=== PATIENT | male | born 2000 | race Caucasian/White ===

== ENCOUNTER → 2024-07-20 | Outpatient (CLI) | payer MEDICAID ==
[2024-07-20 09:21] LABS: Basophils # (auto) 0 10 ^3/uL (0-0.2); Basophils % (auto) 0.6 % (0.0-2.0); Eosinophils # (auto) 0 10 ^3/uL (0-0.8); Eosinophils % (auto) 0.3 % (0.0-7.0); Hematocrit 44.5 % (41.0-53.0); Hemoglobin 15.5 g/dL (13.5-17.5); Lymphocytes # (auto) 2.2 10 ^3/uL (0.4-5.4); Mean Corpuscular Hemoglobin 28.5 pg (28.0-32.0); Mean Corpuscular Hgb Conc. 34.8 g/dL (32.0-36.0); Mean Corpuscular Volume 82.1 fL (80.0-100.0); Monocytes # (auto) 0.4 10 ^3/uL (0-1.3); Monocytes % (auto) 6.2 % (0.0-12.0); Neutrophils # (auto) 4.4 10 ^3/uL (1.6-8.6); Neutrophils % (auto) 61.9 % (37.0-80.0); Platelet Count (auto) 382 10^3/uL (140-450); Red Blood Cells 5.42 10^6/uL (4.5-5.90); Red Cell Distribution Width 13.1 % (11.8-14.3); White Blood Cell 7.2 10^3/uL (4.4-10.8)
[2024-07-20 09:42] LABS: Alanine Aminotransferase 28 U/L (7-40); Alkaline Phosphatase 70 U/L (46-116); Calcium 9.9 mg/dL (8.7-10.4); Carbon Dioxide 24 mmol/L (20-30); Chloride 104 mmol/L (98-107); Triglycerides 172 mg/dL (< 150)
[2024-07-20 09:43] LABS: Albumin 4.8 g/dL (3.2-4.8); Anion Gap 10 (5-15); Aspartate Aminotransferase 10 U/L (13-40); BUN/Creatinine Ratio 8.6 (10.0-20.0); Blood Urea Nitrogen 7 mg/dL (9-23); Glucose 194 mg/dL (74-106); LDL Cholesterol 86 mg/dL (< 100); Potassium 4.3 mmol/L (3.5-5.1); Sodium 138 mmol/L (136-145)
[2024-07-20 09:44] LABS: Bilirubin, Total 0.5 mg/dL (0.2-1.0); Cholesterol 137 mg/dL (< 200); HDL Cholesterol 36 mg/dL (40-59)
[2024-07-20 10:12] LABS: Creatinine, Urine 87.36 mg/dL (30.0-125.0)
[2024-07-20 10:16] LABS: Micro Albumin < 3.0 mg/L (<30.0)
[2024-07-20 10:38] LABS: Microalb/Creat Ratio, Urine < 3.00
== END | disposition home or self-care (01) ==
LOC: LAB 08:56
PROVIDERS: ATTEND Nurse Practitioner Family
DX: E11.69 Type 2 diabetes mellitus with other specified complication (principal); F41.9 Anxiety disorder, unspecified; E78.1 Pure hyperglyceridemia; E66.9 Obesity, unspecified
CPT/HCPCS: 36415; 80053; 80061; 82043; 82306; 82570; 83036; 84443; 85025